=== PATIENT | male | born 1970 ===

== ENCOUNTER 2018-04-23 08:25 | Day surgery (SDC) | payer OTHER ==
--- NOTE | 2018-04-21 08:19 | HP ---
HISTORY OF PRESENT ILLNESS: Rey Jenkins is a 47-year-old male [facility] inmate for the past seven months. 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 He has an umbilical hernia. This caused him pain. He states that at times when he protrudes in his hard knot, he has difficulty reducing. He will have obstructive symptoms, nausea, bloating. Exam today reveals a reducible umbilical hernia. RECOMMENDATIONS: Would be for laparoscopic robotic mesh repair as outpatient, umbilical hernia. After the operation, he should avoid lifting over 25 pounds for 4 weeks and follow up with me in 2-3 weeks. Risks of infection, bleeding, reoperation, recurrence of hernia were discussed. He consents. ALLERGIES: PENICILLIN. SOCIAL HISTORY: Tobacco one pack per day. Alcohol none. History of drug abuse prior to incarceration. No tobacco use during incarceration. PAST SURGICAL HISTORY: Right hand surgery. PAST MEDICAL HISTORY: Hypertension. MEDICATION: Lisinopril daily. REVIEW OF SYSTEMS: Ten point noncontributory. PHYSICAL EXAMINATION: VITAL SIGNS: 164 pounds,141/87, 55, 98.1 degrees. HEAD, EYES, NOSE, AND THROAT: Unremarkable. LUNGS: Clear to consultation. CARDIAC: Regular rhythm without murmur or gallop. ABDOMEN: Soft. Umbilical hernia reducible. SKIN: Multiple tattoos in abdomen, chest and arms. EXTREMITIES: Unremarkable. No ankle edema. ASSESSMENT AND PLAN: Umbilical hernia. Recommend robot mesh repair as outpatient. He understands risks of infection, bleeding, reoperation, recurrence, and consents. Job ID: [id number]
[~2018-04-23 08:25] MED LIST: Dexamethasone 20 MG/5 ML VIAL ONE; Glycopyrrolate 0.2 MG/ML 5 ML SYRINGE ONE; Ketorolac Tromethamine 30 MG/ML VIAL ONE; Lidocaine 1% PF 5 ML VIAL ONE; PROPOFOL 200 MG/20 ML VIAL ONE
[2018-04-23] MEDS ORDERED: Levofloxacin 500 mg/D5W 100 ml Premix Bag ONE (09:08)
[2018-04-23] MEDS ORDERED: Bupivacaine/Epinephrine 0.25% 30 ML VIAL ONE (09:29)
[2018-04-23] MEDS ORDERED: Fentanyl 100 MCG/2 ML VIAL ONE ×3 (10:44→13:10)
[2018-04-23] MEDS ORDERED: HYDROmorphone 2 MG/ML VIAL ONE (13:40)
[2018-04-23] MEDS ORDERED: Promethazine HCl 25 MG/ML VIAL ONE (14:45)
[2018-04-23] MEDS ORDERED: HYDROcodone/Acetaminophen 5/325 mg Tablet ONE (16:08)
--- NOTE | 2018-04-24 03:34 | OP ---
DATE OF PROCEDURE: 04/23/2018 PREOPERATIVE DIAGNOSIS: Umbilical hernia, symptomatic. POSTOPERATIVE DIAGNOSIS: Umbilical hernia, symptomatic. PROCEDURES PERFORMED: Robotic mesh 11 cm Ventralight repair of umbilical hernia, mesh reinforcement of fascial closure, and robotic laparoscopic repair. ANESTHESIA: General with local 0.5% Marcaine with epinephrine 30 mL. DESCRIPTION OF PROCEDURE: The patient was taken to the operating room, where under general anesthesia, a Noe catheter was placed at the beginning of the procedure and removed at the end. Abdomen was clipped of hair, prepared with ChloraPrep, and draped in routine fashion. A left subxiphoid incision was made and pneumoperitoneum to 15 mmHg obtained with the Veress needle, replaced with 11 mm port, where the balloon positioned and laparoscope was inserted. Bilateral subcostal far lateral incision was made. An 8 mm port was placed. The robot was docked and under laparoscopic visualization, robotic repair of umbilical hernia undertaken. There was an umbilical hernia defect cleared of fatty tissue. Preperitoneal fat removed from the umbilical hernia defect. There was another defect along the lateral that was unappreciated on physical exam. The fascial closure was accomplished with continuous suture of 0 V-Loc suture. An 11 cm Ventralight mesh was inserted in the abdominal cavity and coated side placed against the visceral side and mesh secured with continuous suture of 2-0 V-Loc suture after reducing pneumoperitoneum to 10 mmHg. After the repair was undertaken, needles were removed and counts were correct, and pneumoperitoneum reduced, and subxiphoid fascia was approximated with 0 Vicryl on UR needle and all skin incisions were approximated with subdermal 4-0 Monocryl and Sabattus glue applied. Job ID: [id number]
== END 2018-04-23 17:06 ==
LOC: SDC 08:25
PROVIDERS: ATTEND Specialist
PROC: 0WUF4JZ Supplement Abdominal Wall with Synthetic Substitute, Percutaneous Endoscopic Approach (ICD-10-PCS; principal; 2018-04-23)
DX: K42.9 Umbilical hernia without obstruction or gangrene (principal); I10 Essential (primary) hypertension; F17.200 Nicotine dependence, unspecified, uncomplicated; Z88.0 Allergy status to penicillin; Z79.899 Other long term (current) drug therapy
CPT/HCPCS: 96374; C1781; J0131; J1100; J1170; J1885; J1956; J2001; J2550; J2704; J3010